=== PATIENT | female | born 1990 | race Caucasian/White ===

== ENCOUNTER 2019-09-11 14:27 | Inpatient (IN) | payer OTHER ==
[~2019-09-11] VITALS: Ht 180.3 cm; Wt 83.9 kg
--- NOTE | 2019-09-11 15:29 | NUR ---
PATIENT MEETS [facility]. CINA =[id number]. PATIENT IS GOING TO FOLLOW UP WITH [facility] FOR PARTIAL HOSPITALIZATION FOR HER AFTERCARE PLAN. MAULIK RAE B.A. CARD GRINDER
[2019-09-11 16:00] VITALS: BP 128/88
[2019-09-11 16:51] LABS: BASO # 0.1 10*3/uL (0.0-0.1); BASO % 0.9 % (0.0-1.0); EOS # 0.2 10*3/uL (0.0-0.4); HEMATOCRIT 39.5 % (37.0-47.0); LYMPH # 3.9 10*3/uL (1.3-4.4); LYMPH % 44.7 % (27.0-41.0); MEAN CELL VOLUME 85.9 fl (81.0-99.0); MEAN CORPUSCULAR HGB 30.7 pg (27.0-31.0); MEAN CORPUSCULAR HGB CONC 35.7 g/dl (33.0-37.0); MEAN PLATELET VOLUME 10.3 fl (9.6-12.3); MONO # 0.5 10*3/uL (0.1-1.0); MONO % 5.6 % (3.0-9.0); NEUT % 46.6 % (47.0-73.0); PLATELET COUNT AUTOMATED 307 10*3/uL (130-400); RED CELL DISTRI WIDTH 13.1 % (0-14.5); WHITE BLOOD COUNT 8.6 10*3/uL (4.8-10.8)
[2019-09-11] MEDS ORDERED: 'CLONIDINE0.1 MG PO (16:58)
[2019-09-11] MEDS ORDERED: NEURONTIN600 MG PO (16:59)
[2019-09-11] MEDS ORDERED: DOXEPIN HCL10 MG PO (17:00)
[2019-09-11] MEDS ORDERED: VALTREX1000 MG PO (17:00)
[2019-09-11] MEDS ORDERED: CYCLOBENZAPRINE10 MG PO (17:02)
--- NOTE | 2019-09-11 17:19 | NUR ---
MSADMTime: N A 29 year old FEMle admitted to under services of OLENA DAVIS DO. Pt. [place] ambulatory from [place]. Chief complaint: substance abuse. ISELA KRAFT
[2019-09-11 17:22] LABS: ALBUMIN 3.7 gm/dl (3.1-4.5); ALKALINE PHOSPHATASE 99 U/L (45-117); BUN 5 mg/dl (7-24); CHLORIDE 105 mmol/L (98-107); CREATININE 0.53 mg/dL (0.55-1.02); POTASSIUM 3.9 mmol/L (3.5-5.1); SGOT/AST 20 IU/L (3-35); SGPT/ALT 23 U/L (12-78); SODIUM 138 mmol/L (136-145); TOTAL PROTEIN 8.1 gm/dL (6.4-8.2)
[2019-09-11 17:26] LABS: ETHYL ALCOHOL < 3.0 mg/dl (<3)
--- NOTE | 2019-09-11 19:50 | NUR ---
patient up to bathroom and voided. urine specimens obtained and sent to lab for UA, drug and .
[2019-09-11 20:00] VITALS: BP 113/59
[2019-09-11 20:16] LABS: BACTERIA 1+; BILIRUBIN NEGATIVE (NEGATIVE); BLOOD NEGATIVE (NEGATIVE); CLARITY CLEAR (CLEAR); COLOR YELLOW (YELLOW); EPITHELIAL CELLS TNTC; GLUCOSE NEGATIVE (NEGATIVE); KETONE NEGATIVE (NEGATIVE); LEUKO ESTERASE NEGATIVE (NEGATIVE); NITRITE NEGATIVE (NEGATIVE); RBC 0-2 rbc/hpf (0-2); SPECIFIC GRAVITY 1.025 (1.005-1.030); UROBILINOGEN 0.2 E.U./dl (0.2-1.0); WBC 0-2 wbc/hpf (0-5)
[2019-09-11 20:17] LABS: URINE AMPHETAMINES < 1000 (1000ng/ml); URINE BARBITURATES < 200 (200ng/ml); URINE BENZODIAZEPINES < 200 (200ng/ml); URINE CANNABINOIDS (THC) > 50 (50ng/ml); URINE COCAINE < 300 (300ng/ml); URINE METHADONE < 300 (300ng/ml); URINE OPIATES > 300 (300ng/ml)
[2019-09-11 20:18] LABS: URINE PHENCYCLIDINE < 25 (25ng/ml)
[2019-09-11] MEDS ORDERED: FLUVOXAMINE100 MG PO (23:10)
--- NOTE | 2019-09-11 23:33 | NUR ---
C/O LEGS ACHING AND RESTLESS AND PATIENT VERY ANXIOUS. ROBAXIN, REQUIP GIVEN FOR MUSCLE ACHES/RESTLESSNESS AND VISTARIL GIVEN FOR ANXIETY. BOYFRIEND JUST LEFT AND PATIENT UPSET CRYING
--- NOTE | 2019-09-11 23:39 | NUR ---
PATIENT REFUSING SUBUTEX SAID "IT'LL THROW ME INTO SEVERE WITHDRAWL AND I DON'T WANT TO TAKE IT NOW. I USED WITHIN 24 HRS." PATIENT WANTING TO HAVE HER HOME MEDS EXPLAINED TO PATIENT ABOUT PRN PROTOCOL MEDICATIONS THAT WILL COVER WHAT HER HOME MEDS WILL DO. PATIENT WANTS FLUVOXAMINE THIS RN PLACED THAT MEDICATION ON HER MED REC AND CALLED DR. WINTER AND NOTIFIED HER OF ALL THIS AND SHE IS LOOKING INTO HER MEDS.
[2019-09-12] VITALS: BP 113/83
--- NOTE | 2019-09-12 01:30 | NUR ---
PATIENT SLEEPING. REQUIIP,ROBAXIN, VISTARIL EFFECTIVE.
--- NOTE | 2019-09-12 04:00 | NUR ---
SLEEPING. NO ACUTE DISTRESS NOTED.
--- NOTE | 2019-09-12 06:20 | NUR ---
CONTINUES TO SLEEP WELL. RESP. EASY AND REG. NO RESTLESSNESS NOTED WHILE SLEEPING.
--- NOTE | 2019-09-12 06:36 | NUR ---
24 HR chart check completed.
[2019-09-12 08:00] VITALS: BP 94/56
--- NOTE | 2019-09-12 09:30 | NUR ---
PATIENT REFUSES SUBUTEX AT THIS TIME. BUT COMPLAINS OF OF RESTLESS LEGS, PAIN AND MUSCLE SPASMS AT THIS TIME. PATIENT ALSO STATES SHE IS ANXIOUS. PRN TYLENOL, ROBAXIN, REQUIP AND VISTERIL ADMINISTERED AT THIS TIME. WILL MONIOTR FOR EFFECTIVENESS. BED IN LOWEST LOCKED POSITION AND CALL LIGHT WITHIN REACH.
[2019-09-12 12:00] VITALS: BP 108/54
--- NOTE | 2019-09-12 15:45 | NUR ---
PATIENT LEFT AMA.
== END 2019-09-12 16:25 | disposition left against medical advice (07) | DRG 770 ==
LOC: 4E 14:27
PROVIDERS: Hospitalist; ADMIT Internal Medicine
DX: F11.23 Opioid dependence with withdrawal (principal); F17.210 Nicotine dependence, cigarettes, uncomplicated; F12.10 Cannabis abuse, uncomplicated; F41.9 Anxiety disorder, unspecified; R00.0 Tachycardia, unspecified; Z53.29 Procedure and treatment not carried out because of patient's decision for other reasons; Z71.6 Tobacco abuse counseling; Z86.19 Personal history of other infectious and parasitic diseases; Z90.49 Acquired absence of other specified parts of digestive tract; Z80.3 Family history of malignant neoplasm of breast; Z79.899 Other long term (current) drug therapy